=== PATIENT | male | born 1985 | race Caucasian/White ===

== ENCOUNTER 2024-03-24 12:52 | Emergency (ER) | payer OTHER ==
[2024-03-24] MEDS ORDERED: ONDANSETRON 4 MG/2 ML VIAL ONE (13:14)
[2024-03-24] MEDS ORDERED: NA CHLORIDE 0.9% 1,000 ML ONE (13:15)
[2024-03-24 13:57] LABS: Absolute Basophils 0.1 K/uL (0-0.5); Absolute Neutrophil 8.1 K/uL (1.8-8.0); Basophils % 0.6 % (0-1.3); Eosinophils % 0.2 % (0-4.4); Hematocrit 44.1 % (39.6-49.0); Hemoglobin 14.7 g/dL (13.6-17.9); Lymphocytes % 10.2 % (15.3-44.8); MCH 30.9 pg (27.0-35.0); MCHC 33.3 g/dL (32.0-36.0); MCV 92.7 fL (80-100); MPV 8.5 fL (7.6-11.3); Monocytes % 9.5 % (3.3-12.3); Neutrophils % 79.5 % (41.7-73.7); Nucleated Red Blood Cells % 0.1 % (0-0); Platelets 402 thou/uL (152-406); RBC Red Blood Cell Count 4.76 M/uL (4.33-5.43); Red Cell Distribution Width 13.1 % (12.1-15.2)
[2024-03-24 14:14] LABS: Albumin 3.7 g/dL (3.4-5.0); Albumin/Globulin Ratio 0.9 (1.1-1.8); Anion Gap 8.4 mEq/L (5.0-15.0); Bilirubin Total 0.8 mg/dL (0.2-1.0); Globulin 4.1 g/dL (2.3-3.5); Potassium 3.4 mEq/L (3.5-5.1); Protein, Total 7.8 g/dL (6.4-8.2)
--- NOTE | 2024-03-24 15:04 | RAD REPORT ---
EXAM DESCRIPTION: CTAbdomen Pelvis W Contrast - 03/24/2024 2:46 pm CLINICAL HISTORY: ABD PAIN COMPARISON: No comparisons TECHNIQUE: CT of the abdomen and pelvis was performed. All CT scans are performed using dose optimization technique as appropriate and may include automated exposure control or mA/KV adjustment according to patient size. FINDINGS: Lower chest: No acute abnormality. Liver: No acute abnormality or suspicious lesions. Biliary: No biliary ductal dilatation. Stomach: No significant focal abnormality. Duodenum: No significant focal abnormality. Pancreas: No significant abnormality. Spleen: No significant abnormality. Adrenal: No suspicious lesions. Kidney/ureter: No hydronephrosis. No renal calculi. Retroperitoneum: No retroperitoneal adenopathy. Vascular: No aneurysm. Bowel: No significant focal abnormality. Normal appendix . Peritoneum: No ascites or free air. Bladder: Grossly unremarkable. Reproductive: No adnexal masses. Bones: No acute fracture. Trace retrolisthesis of L5 on S1. Other: n/a IMPRESSION: No acute intra-abdominal or pelvic finding.
--- NOTE | 2024-03-24 15:16 | EDPHYS ---
Physician Documentation [facility] Name: Mary Ann Grewal Age: 38 yrs Sex: Male : 1985 Arrival Date: 03/24/2024 Time: 12:52 Bed 8 Private MD: ED Physician Donta Solorzano HPI: 03/24 13:37 This 38 yrs old Male presents to ER via EMS with complaints of Abdominal Pain. rn 13:37 The patient presents with abdominal pain that is diffuse. Onset: The symptoms/episode rn began/occurred 2 day(s) ago. The symptoms do not radiate. Associated signs and symptoms: Pertinent positives: diarrhea, Pertinent negatives: blood in stools, chest pain, fever. The symptoms are described as achy, crampy. Modifying factors: The symptoms are alleviated by nothing, the symptoms are aggravated by nothing. The patient has not experienced similar symptoms in the past. Patient reports was trying to get clean, smokes meth and K2 on a daily basis for very long time. Reports stopped using several days ago and has been feeling like he is withdrawing. Feels abdominal pain and cramping associated with nonbloody diarrhea. Denies fever or chills.. Historical: - Allergies: 13:00 No Known Allergies; ph - PMHx: 13:00 Asthma; ph - Immunization history:: Adult Immunizations up to date. - Infectious Disease History:: Denies. - Social history:: Smoking status: unknown. - Family history:: not pertinent. - Hospitalizations: : No recent hospitalization is reported. ROS: 13:37 Constitutional: Negative for fever, chills, and weight loss, Cardiovascular: Negative rn for chest pain, palpitations, and edema, Respiratory: Negative for shortness of breath, cough, wheezing, and pleuritic chest pain, Abdomen/GI: Positive for abdominal pain and diarrhea MS/Extremity: Negative for injury and deformity, Neuro: Negative for headache, weakness, numbness, tingling, and seizure, Exam: 13:37 Constitutional: This is a well developed, well nourished patient who is awake, alert, rn and in no acute distress. Cardiovascular: Regular rate and rhythm. No pulse deficits. Respiratory: No increased work of breathing, no retractions or nasal flaring. Abdomen/GI: Soft, no focal tenderness. No rebound or masses. No peritoneal signs. MS/ Extremity: Pulses equal, no cyanosis. Neurovascular intact. Full, normal range of motion. Equal circumference. Neuro: Awake and alert, GCS 15, oriented to person, place, time, and situation. Vital Signs: 12:57 BP 154 / 117; Pulse 65; Resp 18; Temp 97.5; Pulse Ox 100% on R/A; Weight 74.39 kg; ph Height 5 ft. 9 in. ; 14:08 BP 146 / 86; Pulse 57; Resp 18; Pulse Ox 100% on R/A; ph 15:00 BP 138 / 74; Pulse 62; Resp 16; Pulse Ox 99% ; ko1 15:42 BP 134 / 79; Pulse 60; Resp 18; Pulse Ox 100% ; ko1 12:57 Body Mass Index 24.22 (74.39 kg, 175.26 cm) ph MDM: 12:57 Patient medically screened. rn 15:14 Differential diagnosis: appendicitis, bowel obstruction, cholecystitis, Cholelithiasis, rn diverticulitis, gastritis, gastroesophageal reflux disease, GI Bleed, non-specific abd pain, pancreatitis, Peptic Ulcer Disease, Perf. Duodenal Ulcer, Perf. Gastric Ulcer. Data reviewed: vital signs, nurses notes, lab test result(s), radiologic studies, CT scan, and as a result, I will discharge patient. Counseling: I had a detailed discussion with the patient and/or guardian regarding the historical points, exam findings, and any diagnostic results supporting the discharge/admit diagnosis, lab results, radiology results, the need for outpatient follow up, to return to the emergency department if symptoms worsen or persist or if there are any questions or concerns that arise at home. Special discussion: Based on the patient's Hx, exam, and Dx evaluation, there is no indication for emergent surgery or inpatient Tx. It is understood by the patient/guardian that if the Sx's persist or worsen they need to return immediately for re-evaluation. I discussed with the patient/guardian in detail that at this point there is no indication for admission to the hospital. It is understood, however, that if the symptoms persist or worsen the patient needs to return immediately for re-evaluation. 03/24 13:03 Order name: CBC with Diff; Complete Time: 14:25 rn 03/24 13:03 Order name: CMP; Complete Time: 14:25 rn 03/24 13:03 Order name: Lipase; Complete Time: 14:25 rn 03/24 13:03 Order name: CT Abd/Pelvis - IV Contrast Only; Complete Time: 15:11 rn 03/24 13:03 Order name: IV Saline Lock; Complete Time: 13:17 rn 03/24 13:03 Order name: Labs collected and sent; Complete Time: 13:33 rn Administered Medications: 13:20 Drug: NS 0.9% IV 1000 ml IV at 1 bolus Per protocol; 1000 mL bolus Route: IV; Rate: 1 ko1 bolus; Site: right antecubital; 15:00 Follow up: Response: No adverse reaction; IV Status: Completed infusion; IV Intake: ko1 1000ml 13:20 Drug: Ondansetron IVP 4 mg IVP once; over 2 minutes Route: IVP; Site: right antecubital;ko1 13:35 Follow up: Response: No adverse reaction; Nausea is decreased ko1 Disposition Summary: 03/24/24 15:15 Discharge Ordered Notes: Location: Home rn Problem: new rn Symptoms: have improved rn Condition: Stable rn Diagnosis - Abdominal pain, unspecified rn - Other psychoactive substance dependence with withdrawal, unspecified rn Followup: rn - With: Private Physician - When: As needed - Reason: Recheck today's complaints, Re-evaluation by your physician Discharge Instructions: - Discharge Summary Sheet rn - Abdominal Pain, Adult rn Forms: - Medication Reconciliation Form rn - Antibiotic sheet metal journeyman - Prescription Opioid Use rn - Patient Portal Instructions rn - Leadership Thank You Letter rn Signatures: Dispatcher [employer] Donta Alcantara MD MD rn Hall, Patricia, RN RN ph Oliver, Kathy, RN RN ko1
--- NOTE | 2024-03-24 15:16 | ER ---
Nurse's Notes [facility] Name: Mary Ann Grewal Age: 38 yrs Sex: Male : 1985 Arrival Date: 03/24/2024 Time: 12:52 Bed 8 Private MD: Diagnosis: Abdominal pain, unspecified;Other psychoactive substance dependence with withdrawal, unspecified Presentation: 03/24 12:57 Chief complaint: EMS states: Pt from [facility], EMS called because he was found ph lying in the position, diaphoretic w/ AMS, when EMS arrived pt was diaphoretic but A\T\O x 4, c/o pain to entire abdomen, reports that he is trying to stop using K2 and meth, last used approx 3 days ago, denies N/V, given 1 gram IV Tylenol for pain, 20 G RAC. Coronavirus screen: Vaccine status: Patient reports receiving the 2nd dose of the covid vaccine. Ebola Screen: No symptoms or risks identified at this time. Initial Sepsis Screen: Does the patient meet any 2 criteria? No. Patient's initial sepsis screen is negative. Does the patient have a suspected source of infection? No. Patient's initial sepsis screen is negative. Risk Assessment: Do you want to hurt yourself or someone else? Patient reports no desire to harm self or others. Onset of symptoms was March 24, 2024. 12:57 Method Of Arrival: EMS: [facility] 12:57 Acuity: RY 3 ph Triage Assessment: 13:01 General: Appears in no apparent distress. Behavior is calm, cooperative. Pain: ph Complains of pain in abdomen. Neuro: Level of Consciousness is awake, alert, obeys commands, Oriented to person, place, time, situation. Cardiovascular: Capillary refill < 3 seconds in bilateral fingers Patient's skin is warm and dry. Respiratory: Airway is patent Respiratory effort is even, unlabored. GI: Abdomen is non-distended, Abd is non tender X 4 quads Reports lower abdominal pain, upper abdominal pain. Derm: Skin is pink, warm \T\ dry. Historical: - Allergies: 13:00 No Known Allergies; ph - PMHx: 13:00 Asthma; ph - Immunization history:: Adult Immunizations up to date. - Infectious Disease History:: Denies. - Social history:: Smoking status: unknown. - Family history:: not pertinent. - Hospitalizations: : No recent hospitalization is reported. Screenin:02 [facility] ED Fall Risk Assessment (Adult) History of falling in the last 3 months, ph including since admission No falls in past 3 months (0 pts) Confusion or Disorientation No (0 pts) Intoxicated or Sedated No (0 pts) Impaired Gait No (0 pts) Mobility Assist Device Used No (0 pt) Altered Elimination No (0 pt) Score/Fall Risk Level 0 - 2 = Low Risk Oriented to surroundings, Maintained a safe environment, Hourly rounding (assess needs \T\ fall precautionary measures) done. Abuse screen: Denies threats or abuse. Denies injuries from another. Nutritional screening: No deficits noted. Tuberculosis screening: No symptoms or risk factors identified. Assessment: 13:00 General: Appears in no apparent distress. Pain: Complains of pain in abdomen. Neuro: No ko1 deficits noted. Cardiovascular: No deficits noted. Respiratory: No deficits noted. GI: Bowel sounds present X 4 quads. Reports lower abdominal pain, nausea. GI: Abdomen is non-distended. GI: Abd is soft and non tender X 4 quads. : No deficits noted. EENT: No deficits noted. Derm: No deficits noted. Musculoskeletal: No deficits noted. 13:00 General: SEE TRIAGE ASSESSMENT. ph Vital Signs: 12:57 BP 154 / 117; Pulse 65; Resp 18; Temp 97.5; Pulse Ox 100% on R/A; Weight 74.39 kg; ph Height 5 ft. 9 in. ; 14:08 BP 146 / 86; Pulse 57; Resp 18; Pulse Ox 100% on R/A; ph 15:00 BP 138 / 74; Pulse 62; Resp 16; Pulse Ox 99% ; ko1 15:42 BP 134 / 79; Pulse 60; Resp 18; Pulse Ox 100% ; ko1 12:57 Body Mass Index 24.22 (74.39 kg, 175.26 cm) ph ED Course: 12:57 Patient arrived in ED. ph 12:57 Donta Solorzano MD is Attending Physician. rn 13:00 Triage completed. ph 13:00 Provided Education on: labs, call light. Door closed. Noise minimized. Lights dimmed. ko1 Warm blanket given. Pillow given. 13:00 No provider procedures requiring assistance completed. ko1 13:00 Maintain EMS IV. Dressing intact. Good blood return noted. Site clean \T\ dry. Gauge \T\ ko 1 site: 20g right AC. 13:01 Vilma Dyer, RN is Primary Nurse. ph 13:01 Arm band placed on Patient placed in an exam room, on a stretcher, on pulse oximetry. ph 13:02 Patient has correct armband on for positive identification. Bed in low position. Call ph light in reach. Side rails up X2. Pulse ox on. NIBP on. TDC guards at bedside. 13:33 CBC with Diff Sent. ko1 13:33 CMP Sent. ko1 13:33 Lipase Sent. ko1 14:48 CT Abd/Pelvis - IV Contrast Only In Process Unspecified. EDMS 15:42 IV discontinued, intact, bleeding controlled, No redness/swelling at site. Pressure ko1 dressing applied. Administered Medications: 13:20 Drug: NS 0.9% IV 1000 ml IV at 1 bolus Per protocol; 1000 mL bolus Route: IV; Rate: 1 ko1 bolus; Site: right antecubital; 15:00 Follow up: Response: No adverse reaction; IV Status: Completed infusion; IV Intake: ko1 1000ml 13:20 Drug: Ondansetron IVP 4 mg IVP once; over 2 minutes Route: IVP; Site: right antecubital;ko1 13:35 Follow up: Response: No adverse reaction; Nausea is decreased ko1 Medication: 13:02 VIS not applicable for this client. ph Intake: 15:00 IV: 1000ml; Total: 1000ml. ko1 Outcome: 15:15 Discharge ordered by . rn 15:42 Discharged to Law Enforcement ko1 15:42 Condition: improved 15:42 Discharge instructions given to patient, police, Instructed on discharge instructions, follow up and referral plans. Demonstrated understanding of instructions, follow-up care, 15:44 Patient left the ED. ko1 Signatures: Dispatcher [employer] EDMS Donta Solorzano MD MD rn Hall, Patricia, Britney Michaels RN, ph, RN RN ko1
[2024-03-24 15:49] VITALS: TEMP 97.5
[2024-03-24 15:52] VITALS: BP 134/79; O2SAT 100
== END 2024-03-24 15:44 | disposition home or self-care (01) ==
LOC: ER 12:52
DX: R10.9 Unspecified abdominal pain (principal); F19.239 Other psychoactive substance dependence with withdrawal, unspecified
CPT/HCPCS: 96361; 85025; 36415; 83690; 80053; 74177; 96374; 99284; Q9967; J2405; J7030